=== PATIENT | female | born 1985 | race African-American/Black ===

== ENCOUNTER 2016-09-10 15:14 | Emergency (ER) | payer OTHER ==
[~2016-09-10] VITALS: Ht 162.6 cm; Wt 95.0 kg
[2016-09-10 15:14] VITALS: BP 148/100; PULSE 90; RESP 16; TEMP 98.8; O2SAT 98
--- NOTE | 2016-09-10 15:59 | PD ---
HPI Chief Complaint: Related Problem Time Seen by Provider: 15:50 Travel History International Travel<30 days: No Contact w/Intl Traveler<30days: No Traveled to known affect area: No History of Present Illness HPI This is a 31-year-old female last menstrual period July 02 who presents for evaluation of right lower quadrant abdominal discomfort and vaginal bleeding. Symptoms been ongoing for 2 days. She describes the pain and light work quadrant as a crampy pain that comes and goes. She has been having some vaginal spotting for the past 2 days as well. The vaginal spotting has worsened and she called her SEX OFFENDER TREATMENT PROFESSIONAL's office and was advised to come here for further evaluation. She reports that she is establishing care with Dr. Radford and she reports that an ultrasound was done in his office 2 weeks ago reportedly showing some ovarian cysts on the right side but otherwise unremarkable. She does not know her blood type. Denies dysuria, flank pain, nausea or vomiting. No other complaints. PFSH Past Medical History Medical History: Denies Significant Hx ?: LMP: 07/02/16 Social History Alcohol Use: No Tobacco Use: No Allergies-Medications (Allergen,Severity, Reaction): Coded Allergies: No Known Allergies (Unverified , 09/10/16) Review of Systems Except as stated in HPI: all other systems reviewed are Neg Physical Exam Narrative GENERAL: Well-developed well-nourished female in no acute distress SKIN: Warm and dry. HEAD: Atraumatic. Normocephalic. EYES: Pupils equal and round. No scleral icterus. No injection or drainage. ENT: No nasal bleeding or discharge. Mucous membranes pink and moist. NECK: Trachea midline. No JVD. CARDIOVASCULAR: Regular rate and rhythm. No murmur appreciated. RESPIRATORY: No accessory muscle use. Clear to auscultation. Breath sounds equal bilaterally. GASTROINTESTINAL: Abdomen soft, mild right lower quadrant tenderness without guarding. MUSCULOSKELETAL: No obvious deformities. No edema. NEUROLOGICAL: Awake and alert. No obvious cranial nerve deficits. Motor grossly within normal limits. Normal speech. PSYCHIATRIC: Appropriate mood and affect; insight and judgment normal. Data Data Last Documented VS Vital Signs Date Time Temp Pulse Resp B/P Pulse Ox O2 Delivery O2 Flow Rate FiO2 09/10/16 15:14 98.8 90 16 148/100 98 Room Air Orders Beta Hcg (Quant/Titer) (09/10/16 15:56) Complete Blood Count With Diff (09/10/16 15:56) Comprehensive Metabolic Panel (09/10/16 15:56) Complete Rh (09/10/16 15:56) Us Pelvis (Ques Pr/Ect)W Trans (09/10/16 ) Urinalysis - C+S If Indicated (09/10/16 15:56) Ed Urine Pregnancytest Poc (09/10/16 15:56) Labs Laboratory Tests Test 09/10/16 09/10/16 16:15 16:21 Urine Color YELLOW Urine Turbidity CLEAR Urine pH 5.5 Urine Specific Steger 1.028 Urine Protein TRACE mg/dL Urine Glucose (UA) NEG mg/dL Urine Ketones NEG mg/dL Urine Occult Blood NEG Urine Nitrite NEG Urine Bilirubin NEG Urine Urobilinogen LESS THAN 2.0 MG/DL Urine Leukocyte Esterase NEG Urine RBC LESS THAN 1 /hpf Urine WBC 1 /hpf Urine Squamous Epithelial 1 /hpf Cells Urine Calcium Oxalate Crystals FEW /hpf Urine Mucus FEW /lpf Microscopic Urinalysis Comment CULT NOT INDICATED White Blood Count 6.0 TH/MM3 Red Blood Count 4.88 MIL/MM3 Hemoglobin 12.6 GM/DL Hematocrit 37.3 % Mean Corpuscular Volume 76.3 FL Mean Corpuscular Hemoglobin 25.9 PG Mean Corpuscular Hemoglobin 33.9 % Concent Red Cell Distribution Width 14.6 % Platelet Count 268 TH/MM3 Mean Platelet Volume 8.5 FL Neutrophils (%) (Auto) 62.0 % Lymphocytes (%) (Auto) 28.8 % Monocytes (%) (Auto) 7.5 % Eosinophils (%) (Auto) 1.2 % Basophils (%) (Auto) 0.5 % Neutrophils # (Auto) 3.7 TH/MM3 Lymphocytes # (Auto) 1.7 TH/MM3 Monocytes # (Auto) 0.4 TH/MM3 Eosinophils # (Auto) 0.1 TH/MM3 Basophils # (Auto) 0.0 TH/MM3 CBC Comment DIFF FINAL Differential Comment Sodium Level 137 MEQ/L Potassium Level 3.9 MEQ/L Chloride Level 101 MEQ/L Carbon Dioxide Level 28.0 MEQ/L Anion Gap 8 MEQ/L Blood Urea Nitrogen 14 MG/DL Creatinine 0.84 MG/DL Estimat Glomerular Filtration 97 ML/MIN Rate Random Glucose 103 MG/DL Calcium Level 8.4 MG/DL Total Bilirubin 0.2 MG/DL Aspartate Amino Transf 13 U/L (AST/SGOT) Alanine Aminotransferase 25 U/L (ALT/SGPT) Alkaline Phosphatase 52 U/L Total Protein 7.1 GM/DL Albumin 3.3 GM/DL Human Chorionic Gonadotropin, 27155 MIU/ML Quant Blood Type AB POSITIVE Rho(D) Type POSITIVE MDM Medical Decision Making Medical Screen Exam Complete: Yes Emergency Medical Condition: Yes Medical Record Reviewed: Yes Differential Diagnosis Threatened , ectopic , ovarian cyst, tubo-ovarian abscess, ovarian torsion Narrative Course This patient was initially seen in triage where lab work and ultrasound have been ordered. The patient will be moved to a medical bed when one becomes available. Marino Vick Sep 10, 2016 15:59
[2016-09-10 16:39] LABS: AUTOMATED NEUTROPHIL # 3.7 TH/MM3 (1.8-7.7); BASOPHIL % 0.5 % (0.0-2.0); EOSINOPHIL # 0.1 TH/MM3 (0-0.4); EOSINOPHIL % 1.2 % (0.0-4.0); HEMATOCRIT 37.3 % (35.0-46.0); HEMO FLAGS DIFF FINAL; LYMPH % 28.8 % (9.0-44.0); LYMPHOCYTE # 1.7 TH/MM3 (1.0-4.8); MEAN CELL VOLUME 76.3 FL (80.0-100.0); MEAN CORPUSCULAR HEMOGLOBIN 25.9 PG (27.0-34.0); MEAN CORPUSCULAR HGB CONC 33.9 % (32.0-36.0); MONO % 7.5 % (0.0-8.0); PLATELET COUNT 268 TH/MM3 (150-450); RED BLOOD COUNT 4.88 MIL/MM3 (4.00-5.30); RED CELL DISTRIBUTION WIDTH 14.6 % (11.6-17.2)
[2016-09-10 16:51] LABS: ALT (GPT) 25 U/L (10-53); ANION GAP 8 MEQ/L (5-15); AST (GOT) 13 U/L (15-37); BLOOD UREA NITROGEN 14 MG/DL (7-18); CHLORIDE 101 MEQ/L (98-107); GLOMERULAR FILTRATION RATE 97 ML/MIN (>89); POTASSIUM 3.9 MEQ/L (3.5-5.1); SODIUM (NA) 137 MEQ/L (136-145)
[2016-09-10 16:55] LABS: BLOOD, URINE NEG (NEG); CALCIUM OXALATE CRYSTALS,URINE FEW /hpf; COMMENT (UR) CULT NOT INDICATED; CULTURE IF INDICATED CULT NOT INDICATED; GLUCOSE,URINE NEG (NEG); KETONE, URINE NEG (NEG); MUCUS URINE FEW /lpf (OCC); NITRITE,URINE NEG (NEG); PH, URINE 5.5 (5.0-8.5); SQUAMOUS EPITHELIAL CELL URINE 1 /hpf (0-5); URINE COLOR YELLOW (YELLW/STRAW)
[2016-09-10 17:08] LABS: ALKALINE PHOSPHATASE 52 U/L (45-117); BETA HCG QUANT 76152 MIU/ML (0-5); TOTAL BILIRUBIN ADULT 0.2 MG/DL (0.2-1.0)
--- NOTE | 2016-09-10 19:10 | PD ---
Physical Exam Narrative Patient was seen by physician medicine assistant and signed out to me. DIPLOMATIC OFFICER exam: No fresh blood in the vaginal vault. Brownish discharge noted. The cervix long thick and closed. Uterus is enlarged with mild tenderness on palpation. No adnexal mass or tenderness. Data Data Last Documented VS Vital Signs Date Time Temp Pulse Resp B/P Pulse Ox O2 Delivery O2 Flow Rate FiO2 09/10/16 20:00 75 16 119/71 98 Room Air 09/10/16 15:14 98.8 Orders Beta Hcg (Quant/Titer) (09/10/16 15:56) Complete Blood Count With Diff (09/10/16 15:56) Comprehensive Metabolic Panel (09/10/16 15:56) Complete Rh (09/10/16 15:56) Us Pelvis (Ques Pr/Ect)W Trans (09/10/16 ) Urinalysis - C+S If Indicated (09/10/16 15:56) Ed Urine Pregnancytest Poc (09/10/16 15:56) Labs Laboratory Tests Test 09/10/16 09/10/16 16:15 16:21 Urine Color YELLOW Urine Turbidity CLEAR Urine pH 5.5 Urine Specific Grandin 1.028 Urine Protein TRACE mg/dL Urine Glucose (UA) NEG mg/dL Urine Ketones NEG mg/dL Urine Occult Blood NEG Urine Nitrite NEG Urine Bilirubin NEG Urine Urobilinogen LESS THAN 2.0 MG/DL Urine Leukocyte Esterase NEG Urine RBC LESS THAN 1 /hpf Urine WBC 1 /hpf Urine Squamous Epithelial 1 /hpf Cells Urine Calcium Oxalate Crystals FEW /hpf Urine Mucus FEW /lpf Microscopic Urinalysis Comment CULT NOT INDICATED White Blood Count 6.0 TH/MM3 Red Blood Count 4.88 MIL/MM3 Hemoglobin 12.6 GM/DL Hematocrit 37.3 % Mean Corpuscular Volume 76.3 FL Mean Corpuscular Hemoglobin 25.9 PG Mean Corpuscular Hemoglobin 33.9 % Concent Red Cell Distribution Width 14.6 % Platelet Count 268 TH/MM3 Mean Platelet Volume 8.5 FL Neutrophils (%) (Auto) 62.0 % Lymphocytes (%) (Auto) 28.8 % Monocytes (%) (Auto) 7.5 % Eosinophils (%) (Auto) 1.2 % Basophils (%) (Auto) 0.5 % Neutrophils # (Auto) 3.7 TH/MM3 Lymphocytes # (Auto) 1.7 TH/MM3 Monocytes # (Auto) 0.4 TH/MM3 Eosinophils # (Auto) 0.1 TH/MM3 Basophils # (Auto) 0.0 TH/MM3 CBC Comment DIFF FINAL Differential Comment Sodium Level 137 MEQ/L Potassium Level 3.9 MEQ/L Chloride Level 101 MEQ/L Carbon Dioxide Level 28.0 MEQ/L Anion Gap 8 MEQ/L Blood Urea Nitrogen 14 MG/DL Creatinine 0.84 MG/DL Estimat Glomerular Filtration 97 ML/MIN Rate Random Glucose 103 MG/DL Calcium Level 8.4 MG/DL Total Bilirubin 0.2 MG/DL Aspartate Amino Transf 13 U/L (AST/SGOT) Alanine Aminotransferase 25 U/L (ALT/SGPT) Alkaline Phosphatase 52 U/L Total Protein 7.1 GM/DL Albumin 3.3 GM/DL Human Chorionic Gonadotropin, 16750 MIU/ML Quant Blood Type AB POSITIVE Rho(D) Type POSITIVE MDM Supervised Visit with REVA: Yes Interpretation(s) 1915 p.m. CBC within normal limit. CMP within normal limit. Beta hCG 76 , 152. UA is negative. Blood type AB+. 2002 PM. Last Impressions Pelvis Ultrasound 09/10/16 0000 Signed Impressions: Service Date/Time: Saturday, September 10, 2016 17:59 - CONCLUSION: Viable IUP. K. Holland Lentz MD Diagnosis Primary Impression: Vaginal bleeding in patient at less than 20 weeks gestation Patient Instructions: General Instructions Additional Instruction: Encourage by mouth fluids bed rest. Follow-up with OB in a.m. as scheduled. Return if increasing pelvic pain and vaginal bleeding. Med/Other Pt SpecificInfo: No Meds Exist/No RX given Disposition: 01 DISCHARGE HOME Condition: Stable Robin Vanegas MD Sep 10, 2016 19:10
--- NOTE | 2016-09-10 19:29 | RADRPT ---
EXAM DATE/TIME: 09/10/2016 17:59 [facility] COMPARISON: No previous studies available for comparison. INDICATIONS : Bleeding and pelvic pain with . LAB(S): Beta-hC MEDICAL HISTORY : . Ovarian cysts. x 1. SURGICAL HISTORY : None. ENCOUNTER: Initial ACUITY: 3 days PAIN SCORE: 2/10 LOCATION: Bilateral pelvis MEASUREMENTS: UTERUS: 10.8 x 8.2 x 5.5 cm ENDOMETRIAL STRIPE: >20 mm RIGHT OVARY: 3.8 x 3.2 x 3.2 cm LEFT OVARY: 2.6 x 2.1 x 1.7 cm FREE FLUID: No CROWN RUMP LENGTH: 2.1 cm = 8 WKS 5 DAYS FHR: 180 BPM FINDINGS: Low cysts are present in the right ovary the largest measures 2.0 cm in size. There is no free fluid. The adnexa is unremarkable. CONCLUSION: Viable IUP. [place] Lentz MD on September 10, 2016 at 19:27 Board Certified Radiologist. This report was verified electronically.
[2016-09-10 20:00] VITALS: BP 119/71; PULSE 75; RESP 16; O2SAT 98
== END 2016-09-10 20:14 | disposition home or self-care (01) ==
LOC: NEPC 15:14
DX: O20.9 Hemorrhage in early pregnancy, unspecified (principal)
CPT/HCPCS: 76700; 76817; 80053; 81001; 84702; 84703; 85025; 86901

== ENCOUNTER 2017-04-06 10:50 | Inpatient (IN) | payer OTHER ==
[~2017-04-06] VITALS: Ht 162.6 cm; Wt 93.0 kg
[2017-04-06] VITALS (38 sets, daily range): BP systolic 111–145; BP diastolic 70–102; PULSE 68–101; RESP 14–20; TEMP 97.8–98.1
[2017-04-06] MEDS ORDERED: LACTATED RINGER'S 1000 ML INJ 1,000 ML IV PRN (11:38)
[2017-04-06] MEDS ORDERED: LACTATED RINGER'S 1000 ML INJ 1,000 ML IV SCH (11:38)
--- NOTE | 2017-04-06 11:43 | HHI.HP ---
HPI Chief Complaint Water broke Date Seen: Apr 06, 2017 Time Seen: 11:40 Travel History International Travel<30 Days: No Contact w/Intl Traveler<30Days: No Known Affected Area: No History of Present Illness HPI 31-year-old black female at 38-weeks presents with spontaneous rupture membranes. She grossly ruptured and amnio sure is positive on the heart tones reactive and she is having sporadic contraction and feeling no pain Weeks Gestation: 38 Para: 0 : 1 History Social History Alcohol Use: No Tobacco Use: No Substance Abuse: No Allergies-Medications (Allergen,Severity, Reaction): Coded Allergies: No Known Allergies (Unverified , 09/10/16) Review of Systems General / Constitutional: No: Fever, Weight Gain, Chills, Other Eyes: No: Diploplia, Blurred Vision, Visual changes, Pain, Photophobia HENT: No: Headaches, Vertigo, Lightheadedness Cardiovascular: No: Irregular Rhythm, Chest Pain or Discomfort, Palpitations, Tachycardia, Syncope, Varicosities, Edema, Cyanosis Respiratory: No: Cough, Short of Breath, Other Gastrointestinal: No: Nausea, Vomiting, Diarrhea Genitourinary: No: Decreased Urinary Output, Oliguria Musculoskeletal: No: Limited ROM, Weakness, Cramping, Edema, Pain Skin: No Rash, No Itching, No Dryness, No Lumps, No Change in Pigmentation, No Change in Nails, No Alopecia, No Lesions Neurologic: No: Weakness, Dizziness, Syncope, Focal Abnormalities, Coordination Problem, Headache, Slurred Speech, Seizures Psychiatric: No: Depression, Suicidal Ideations, Homicidal Ideation Endocrine: No: Heat Intolerance, Cold Intolerance, Polydipsia, Polyuria, Other Physical Exam Narrative GENERAL: Well-nourished, well-developed patient. SKIN: Warm and dry. HEAD: Normocephalic and atraumatic. EYES: No scleral icterus. No injection or drainage. ENT: No nasal drainage noted. Mucous membranes pink. Airway patent. NECK: Supple, trachea midline. No JVD. CARDIOVASCULAR: Regular rate and rhythm without murmurs, gallops, or rubs. RESPIRATORY: Breath sounds equal bilaterally. No accessory muscle use. BREASTS: Bilateral exam showed no masses , no retractions, no nipple discharge. ABDOMEN/GI: Abdomen soft, non-tender, bowel sounds present, no rebound, no guarding Gravid to [-38] weeks size Fundal Height: [38-] GENITOURINARY: External Genitalia: intact and normal in appearance BUS glands: [-] Cervix: [1-] Dilatation: [-1] Effacement: [thick-] Station: [-3] Presentation: [vtx-] Membranes: ruptured] amnio sure positive Uterine Contractions: [-Occasional] FHT's: Category: [1-] Baseline: [133-] Reactive: [-yes] Variability: [mod-] Decels: [none-] EXTREMITIES: No cyanosis or edema. BACK: Nontender without obvious deformity. No CVA tenderness. NEUROLOGICAL: Awake and alert. Motor and sensory grossly within normal limits. Five out of 5 muscle strength in all muscle groups. Normal speech. Caprini VTE Risk Assessment Caprini VTE Risk Assessment: No/Low Risk (score <= 1) Caprini Risk Assessment Model Point Value = 1 Point Value = 2 Point Value = 3 Point Value = 5 Age 41-60 Minor surgery BMI > 25 kg/m2 Swollen legs Varicose veins or History of unexplained or recurrent spontaneous Oral contraceptives or hormone replacement Sepsis (< 1 month) Serious lung disease, including pneumonia (< 1 month) Abnormal pulmonary function Acute myocardial infarction Congestive heart failure (< 1 month) History of inflammatory bowel disease Medical patient at bed rest Age 61-74 Arthroscopic surgery Major open surgery (> 45 min) Laparoscopic surgery (> 45 min) Malignancy Confined to bed (> 72 hours) Immobilizing plaster cast Central venous access Age >= 75 History of VTE Family history of VTE Factor V Leiden Prothrombin [id number] Lupus anticoagulant Anticardiolipin antibodies Elevated serum homocysteine Heparin-induced thrombocytopenia Other congenital or acquired thrombophilia Stroke (< 1 month) Elective arthroplasty Hip, pelvis, or leg fracture Acute spinal cord injury (< 1 month) Prophylaxis Regimen Total Risk Factor Score Risk Level Prophylaxis Regimen 0-1 Low Early ambulation 2 Moderate Order ONE of the following: *Sequential Compression Device (SCD) *Heparin 5000 units SQ BID 3-4 Higher Order ONE of the following medications: *Heparin 5000 units SQ TID *Enoxaparin/Lovenox 40 mg SQ daily (WT < 150 kg, CrCl > 30 mL/min) *Enoxaparin/Lovenox 30 mg SQ daily (WT < 150 kg, CrCl > 10-29 mL/min) *Enoxaparin/Lovenox 30 mg SQ BID (WT < 150 kg, CrCl > 30 mL/min) AND/OR *Sequential Compression Device (SCD) 5 or more Highest Order ONE of the following medications: *Heparin 5000 units SQ TID (Preferred with Epidurals) *Enoxaparin/Lovenox 40 mg SQ daily (WT < 150 kg, CrCl > 30 mL/min) *Enoxaparin/Lovenox 30 mg SQ daily (WT < 150 kg, CrCl > 10-29 mL/min) *Enoxaparin/Lovenox 30 mg SQ BID (WT < 150 kg, CrCl > 30 mL/min) AND *Sequential Compression Device (SCD) Data Data Orders Orders Ob (2e) Additional Admit Info (04/06/17 11:19) Admit To Inpatient (04/06/17 ) Vital Signs (Adult) .Per protocol (04/06/17 11:38) Heart (04/06/17 11:38) Amnioinfusion (04/06/17 11:38) Urinary Catheter Management .ONCE (04/06/17 11:38) Diet Liquid (04/06/17 Lunch) Lactated Ringer's 1000 Ml Inj (Lr 1000 M (04/06/17 11:38) Lactated Ringer's 1000 Ml Inj (Lr 1000 M (04/06/17 11:38) Sodium Chlorid 0.9% 500 Ml Inj (Ns 500 M (04/06/17 11:45) Sodium Chlor 0.9% 1000 Ml Inj (Ns 1000 M (04/06/17 11:58) Lidocaine 1% Inj (50 Ml) (Xylocaine 1% I (04/06/17 11:45) Citric Acid-Sodium Citrate Liq (Bicitra (04/06/17 11:45) Fentanyl Inj (Fentanyl Inj) (04/06/17 11:45) Fentanyl Inj (Fentanyl Inj) (04/06/17 11:45) Complete Blood Count With Diff (04/06/17 11:38) Hold Clot (04/06/17 11:38) Abo/Rh Blood Type (04/06/17 11:38) Urinalysis - C+S If Indicated (04/06/17 11:38) Type And Screen (04/06/17 11:38) Resp Oxygen Non Rebreathe Mask (04/06/17 ) ^ Epidural / Intrathecal Infus (04/06/17 11:38) Oxytocin 30 Units-500ml Premix (Pitocin (04/06/17 11:45) Lidocaine 1% Inj (50 Ml) (Xylocaine 1% I (04/06/17 11:45) Light Mineral Oil (Muri-Lube Oil) (04/06/17 11:45) Specimen To Be Collected PRN (04/06/17 11:38) ^ Non Stress Test (04/06/17 11:39) Response To Medication .Post New Med Administration, Reaction (04/06/17 11:39) ^ Discontinue Medication (04/06/17 11:39) Oxytocin Drip (2-2-30) (04/06/17 11:45) Group B Strep: Negative Labs Amnio sure positive Assessment/Plan Assessment and Plan Is 31-year-old black female at [address] Villanueva presents with spontaneous ruptured membranes, not in labor at this time cervix is 1 thick and high, heart tones reactive, no contractions seen regularly, Impressions SROM at 38 weeks and a primip not in labor at this time Plan-admit and augment and induce labor Sam Somers II, MD Apr 06, 2017 11:43
[2017-04-06] MEDS ORDERED: LIDOCAINE HCL 1% 50 ML VIAL I-DERMAL PRN (11:45)
[2017-04-06] MEDS ORDERED: LIDOCAINE HCL 1% 50 ML VIAL INFIL PRN (11:45)
[2017-04-06] MEDS ORDERED: CITRIC ACID-SODIUM CITRATE LIQ 30 ML UDC PO SCH (11:45)
[2017-04-06] MEDS ORDERED: SODIUM CHLORID 0.9% 500 ML INJ 500 ML IV PRN (11:45)
[2017-04-06] MEDS ORDERED: MINERAL OIL 10 ML VIAL TOPICAL PRN (11:45)
[2017-04-06] MEDS ORDERED: OXYTOCIN 30 UNITS-500ML PREMIX 500 ML IV SCH (11:45)
[2017-04-06] MEDS ORDERED: OXYTOCIN 30 UNITS-500ML PREMIX 500 ML IV ONE (11:45)
[2017-04-06] MEDS ORDERED: SODIUM CHLOR 0.9% 1000 ML INJ 1,000 ML IV PRN (11:58)
[2017-04-06 12:46] LABS: BLOOD, URINE NEG (NEG); COMMENT (UR) CULT NOT INDICATED; CULTURE IF INDICATED CULT NOT INDICATED; GLUCOSE,URINE NEG (NEG); KETONE, URINE NEG (NEG); MUCUS URINE FEW /lpf (OCC); NITRITE,URINE NEG (NEG); SQUAMOUS EPITHELIAL CELL URINE 2 /hpf (0-5); URINE COLOR YELLOW (YELLW/STRAW)
[2017-04-06 13:18] LABS: AUTOMATED NEUTROPHIL # 3.7 TH/MM3 (1.8-7.7); BASOPHIL % 0.5 % (0.0-2.0); EOSINOPHIL # 0.1 TH/MM3 (0-0.4); EOSINOPHIL % 1.8 % (0.0-4.0); HEMATOCRIT 37.7 % (35.0-46.0); HEMO FLAGS DIFF FINAL; LYMPH % 24.6 % (9.0-44.0); LYMPHOCYTE # 1.4 TH/MM3 (1.0-4.8); MEAN CELL VOLUME 80.2 FL (80.0-100.0); MEAN CORPUSCULAR HEMOGLOBIN 26.1 PG (27.0-34.0); MEAN CORPUSCULAR HGB CONC 32.5 % (32.0-36.0); MONO % 7.4 % (0.0-8.0); NEUT % 65.7 % (16.0-70.0); PLATELET COUNT 178 TH/MM3 (150-450); RED CELL DISTRIBUTION WIDTH 15.6 % (11.6-17.2); WHITE BLOOD COUNT 5.7 TH/MM3 (4.0-11.0)
[2017-04-06] MEDS ORDERED: Prenatal Vitamin PO (15:19)
[2017-04-06] MEDS ORDERED: NO SYSTEM NARCOTICS PRN (20:00)
[2017-04-06] MEDS ORDERED: fentaNYL 2MCG-BUPIV 0.125% 100 ML EPIDURAL SCH (20:00)
[2017-04-06] MEDS ORDERED: DO NOT ADMINISTER ANTICOAGULANTS PRN (20:00)
[2017-04-06] MEDS ORDERED: fentaNYL 2MCG-BUPIV 0.125% INJ 100 ML ONE (20:19)
[2017-04-06] MEDS ORDERED: ePHEDrine/NS 25 MG/5 ML SYR ONE (20:19)
[2017-04-06] MEDS ORDERED: ePHEDrine/NS 25 MG/5 ML SYR IV PUSH PRN (22:00)
[2017-04-07] VITALS (14 sets, daily range): BP systolic 105–129; BP diastolic 68–84; PULSE 71–91; RESP 16–20; TEMP 98.4–98.8; O2SAT 92
--- NOTE | 2017-04-07 00:20 | PD.OB.DELI ---
Weeks gestation: 38 Gest age assessed date: Apr 06, 2017 Gest age assessed time: 11:15 Pt started active labor?: Yes Medical induction of labor?: No Artificial rupture of membrane: No Anesthesia: Epidural Episiotomy: None Vaginal Delivery: Normal Presentation: Occiput anterior, Compound (hand) Nuchal Cord: None Delayed cord clamping (45 sec): Yes Delivery date: Apr 07, 2017 Delivery time: 12:03 One Minute : 8 Five Minute : 9 Weight: Delayed for [id number] Placenta: Spontaneous delivery, Intact, 3 vessel cord Laceration: 2 deg Repair: Vicryl running Estimated blood loss: 250cc Additional Information Supervised by An Pagan MD, R3 Apr 07, 2017 00:20
[2017-04-07] MEDS ORDERED: BENZOCAINE 20% TOPICAL SPRAY 60 ML CAN TOPICAL PRN (00:30)
[2017-04-07] MEDS ORDERED: oxyCODONE/ACETAMINOPHEN 5 MG/325 MG TAB PO PRN ×2 (00:30)
[2017-04-07] MEDS ORDERED: OXYTOCIN 30 UNITS-500ML PREMIX 500 ML IV SCH (00:30)
[2017-04-07] MEDS ORDERED: ALUMINUM/MAGNESIUM/SIMETH 30 ML CUP PO PRN (00:30)
[2017-04-07] MEDS ORDERED: WITCH HAZEL 50%/GLYCERIN 12.5% 40 PAD JAR TOPICAL PRN (00:30)
[2017-04-07] MEDS ORDERED: SODIUM CHLORIDE 0.9% FLUSH 10 ML FLUSH IV FLUSH PRN (00:30)
[2017-04-07] MEDS ORDERED: ZOLPIDEM TARTRATE 5 MG TAB PO PRN (00:30)
[2017-04-07] MEDS ORDERED: ONDANSETRON ODT 4 MG TAB PO PRN (00:30)
[2017-04-07] MEDS: IBUPROFEN 600 MG TAB PO PRN ×4 (01:40→23:46)
--- NOTE | 2017-04-07 08:22 | PD.PN.STU ---
Subjective Remarks Ms. Nolen delivered just past midnight. She had some difficulty sleeping last night. Her pain is well-controlled with motorin and percocet. She reports normal vaginal bleeding. She denies fever, chest pain, and SOB. She is breast feeding but has had some mild difficulty. Overall she is feeling well. Objective Vitals Vital Signs Date Time Temp Pulse Resp B/P (MAP) Pulse Ox O2 Delivery O2 Flow Rate FiO2 04/07/17 02:30 98.4 18 04/07/17 02:30 86 123/73 (90) 04/07/17 01:30 89 124/68 (86) 04/07/17 01:19 98.7 04/07/17 01:17 16 04/07/17 01:16 90 120/71 (87) 04/07/17 01:14 16 04/07/17 01:01 91 126/72 (90) 04/07/17 00:59 18 04/07/17 00:58 88 129/79 (96) 04/07/17 00:38 16 04/07/17 00:31 88 129/72 (91) 04/07/17 00:30 18 04/06/17 23:13 18 04/06/17 23:00 82 132/87 (102) 04/06/17 22:03 98.0 04/06/17 22:02 16 04/06/17 22:01 68 134/84 (101) 04/06/17 21:45 76 04/06/17 21:40 84 04/06/17 21:36 75 134/88 (103) 04/06/17 21:35 79 04/06/17 21:33 80 133/82 (99) 04/06/17 21:30 77 132/87 (102) 04/06/17 21:30 20 04/06/17 21:30 81 04/06/17 21:25 141/88 (105) 04/06/17 21:25 78 04/06/17 21:21 101 142/98 (113) 04/06/17 21:20 79 04/06/17 21:18 88 141/90 (107) 04/06/17 21:16 96 132/72 (92) 04/06/17 21:15 95 04/06/17 21:14 95 145/102 (116) 04/06/17 21:10 92 04/06/17 21:00 90 04/06/17 20:40 88 04/06/17 20:35 83 04/06/17 20:30 20 04/06/17 20:30 92 141/94 (110) 04/06/17 20:25 75 04/06/17 20:20 82 04/06/17 20:19 18 04/06/17 20:17 78 121/78 (92) 04/06/17 20:15 89 04/06/17 19:24 98.1 16 04/06/17 19:05 80 122/78 (93) 04/06/17 18:52 79 120/78 (92) 04/06/17 18:19 98.0 04/06/17 18:18 74 120/75 (90) 04/06/17 17:00 77 127/79 (95) 04/06/17 17:00 14 04/06/17 14:36 79 117/73 (88) 04/06/17 13:56 79 117/75 (89) 04/06/17 13:15 97.8 18 04/06/17 13:04 82 111/70 (84) 04/06/17 12:02 94 122/87 (99) Result Diagram: 04/06/17 1215 Objective Remarks HEENT: normocephalic Pulm: clear to auscultation Cardiac: regular rate and rhythm. normal s1 and s2 Abdomen: fundus is firm. At this time no tenderness to palpation elicited Medications and IVs Current Medications Medications (Trade) Dose Ordered Sig/Maria Fernanda Route Start Time Stop Time Status Last Admin (Xylocaine 1% Inj (50 ml)) 0.1 ml UNSCH X1 PRN I-DERMAL 04/06/17 11:45 04/09/17 11:44 (Bicitra Liq) 30 ml SKIN TOGGLER PO 04/06/17 11:45 04/10/17 11:44 (Xylocaine 1% Inj (50 ml)) 10 ml UNSCH X1 PRN INFIL 04/06/17 11:45 04/08/17 11:44 Miscellaneous Information No systemic narcotics to be given except... UNSCH PRN .XX 04/06/17 20:00 04/07/17 19:59 Miscellaneous Information DO NOT ADMINISTER ANY ANTICOAGUL... UNSCH PRN .XX 04/06/17 20:00 04/07/17 19:59 (ePHEDrine/NS 25 MG/5 ML SYR) 10 mg UNSCH PRN IV PUSH 04/06/17 22:00 04/07/17 21:59 (NS Flush) 2 ml BID IV FLUSH 04/07/17 09:00 (NS Flush) 2 ml UNSCH PRN IV FLUSH 04/07/17 00:30 (Tylenol) 650 mg Q4H PRN PO 04/07/17 00:30 (Motrin) 600 mg Q6H PRN PO 04/07/17 00:30 04/07/17 01:40 (Percocet 5-325 Mg) 1 tab Q4H PRN PO 04/07/17 00:30 (Percocet 5-325 Mg) 2 tab Q4H PRN PO 04/07/17 00:30 (Americaine 20% Top Spr) 1 spray Q4H PRN TOPICAL 04/07/17 00:30 (Tucks Pads) 1 applic QID PRN TOPICAL 04/07/17 00:30 (Maye-Colace) 2 tab Q12H PRN PO 04/07/17 00:30 (Ambien) 5 mg HS PRN PO 04/07/17 00:30 (M-M-R Ii Inj) 0.5 ml ONCE ONCE SQ 04/07/17 16:00 04/07/17 16:01 (Boostrix Inj) 0.5 ml ONCE ONCE IM 04/07/17 16:00 04/07/17 16:01 (Mag-Al Plus Susp Liq) 15 ml Q8H PRN PO 04/07/17 00:30 (Zofran Odt) 4 mg Q6H PRN PO 04/07/17 00:30 A/P Assessment and Plan Post delivery day one routine post- care Yrn Betancourt M3 Apr 07, 2017 08:22
[2017-04-07] MEDS ORDERED: SODIUM CHLORIDE 0.9% FLUSH 10 ML FLUSH IV FLUSH SCH (09:00)
[2017-04-07] MEDS: DOCUSATE SODIUM 50 MG/SENNA 8.6 MG TAB PO PRN (10:14)
[2017-04-07] MEDS: ACETAMINOPHEN 325 MG TAB PO PRN ×3 (10:14→21:15)
[2017-04-07] MEDS ORDERED: DIPHTH/TETANUS/ACEL PERTUSSIS (BOOSTER) 0.5 ML VIAL/PFS IM ONE (16:00)
[2017-04-07] MEDS ORDERED: MEASLES, MUMPS, RUBELLA VACCINE 0.5 ML VIAL SQ ONE (16:00)
--- NOTE | 2017-04-07 18:01 | HHI.DCPOC ---
Discharge Care Plan Diagnosis: (1) Vaginal delivery Report Symptoms to Your Doctor -Temperature above 100.5 degrees -Redness, of incision or excessive or foul smelling drainage -Unusual pain or calf pain -Increased vaginal bleeding -Painful or difficulty urinating -Feelings of extreme sadness or anxiety after 2 weeks Goals to Promote Your Health * To prevent worsening of your condition and complications * To maintain your health at the optimal level Directions to Meet Your Goals Take your medications as prescribed Follow your dietary instruction Follow activity as directed Ensure plenty of rest for recovery Drink fluids for hydration Keep your appointments as scheduled Take your immunizations and boosters as scheduled If your symptoms worsen call your PCP, if no PCP go to Urgent Care Center or Emergency Room Smoking is Dangerous to Your Health. Avoid second hand smoke Call the 24-hour crisis hotline for domestic abuse at Mumtaz Villanueva MD Apr 07, 2017 18:00
[2017-04-08] MEDS ORDERED: IBUP-232 PO (07:26)
[2017-04-08 07:30] VITALS: PULSE 72; RESP 18; TEMP 97.6
[2017-04-08] MEDS: IBUPROFEN 600 MG TAB PO PRN (07:51)
[2017-04-08] MEDS: DOCUSATE SODIUM 50 MG/SENNA 8.6 MG TAB PO PRN (07:51)
[2017-04-08] MEDS: ACETAMINOPHEN 325 MG TAB PO PRN (07:51)
[2017-04-08] MEDS ORDERED: INFLUENZA VIRUS VACCINE (QUADRIVALENT) 0.5 ML SYR IM ONE (10:00)
--- NOTE | 2017-04-08 11:02 | HHI.OB ---
Subjective Post Day: 1 Objective Vitals/I&O Vital Signs Date Time Temp Pulse Resp B/P (MAP) Pulse Ox O2 Delivery O2 Flow Rate FiO2 04/08/17 07:30 97.6 72 18 04/07/17 20:00 98.4 71 20 121/84 (96) 92 Objective Remarks GENERAL: Well-nourished, well-developed patient. CARDIOVASCULAR: Regular rate and rhythm without murmurs, gallops, or rubs. RESPIRATORY: Breath sounds equal bilaterally. No accessory muscle use. ABDOMEN/GI: Abdomen soft, non-tender. Fundus: Firm, non-tender at umbilicus. GENITOURINARY: Light to moderate bleeding. EXTREMITIES: No cyanosis or edema, non-tender, without signs of DVT. Medications and IVs Current Medications Medications (Trade) Dose Ordered Sig/Maria Fernanda Route Start Time Stop Time Status Last Admin (Xylocaine 1% Inj (50 ml)) 0.1 ml UNSCH X1 PRN I-DERMAL 04/06/17 11:45 04/09/17 11:44 (Bicitra Liq) 30 ml POT LINER PO 04/06/17 11:45 04/10/17 11:44 (Xylocaine 1% Inj (50 ml)) 10 ml UNSCH X1 PRN INFIL 04/06/17 11:45 04/08/17 11:44 (NS Flush) 2 ml BID IV FLUSH 04/07/17 09:00 (NS Flush) 2 ml UNSCH PRN IV FLUSH 04/07/17 00:30 (Tylenol) 650 mg Q4H PRN PO 04/07/17 00:30 04/08/17 07:51 (Motrin) 600 mg Q6H PRN PO 04/07/17 00:30 04/08/17 07:51 (Percocet 5-325 Mg) 1 tab Q4H PRN PO 04/07/17 00:30 (Percocet 5-325 Mg) 2 tab Q4H PRN PO 04/07/17 00:30 (Americaine 20% Top Spr) 1 spray Q4H PRN TOPICAL 04/07/17 00:30 04/07/17 20:05 (Tucks Pads) 1 applic QID PRN TOPICAL 04/07/17 00:30 04/07/17 20:05 (Maye-Colace) 2 tab Q12H PRN PO 04/07/17 00:30 04/08/17 07:51 (Ambien) 5 mg HS PRN PO 04/07/17 00:30 (Mag-Al Plus Susp Liq) 15 ml Q8H PRN PO 04/07/17 00:30 (Zofran Odt) 4 mg Q6H PRN PO 04/07/17 00:30 Assessment/Plan Assessment and Plan pt doing well pain well managed with oral pain medication pt pumping to encourage milk and is and bottle routine care Discharge Planning dc home today Laina Manley Apr 08, 2017 11:02
--- NOTE | 2017-04-08 11:07 | HHI.DS ---
Admission Date Apr 06, 2017 at 11:27 Discharge Date: Apr 08, 2017 Admitting Diagnosis 38 weeks srom Diagnosis: Delivery Date: Apr 07, 2017 Vaginal Delivery: Normal Infant: Female Brief History 31-year-old black female at 38-weeks presents with spontaneous rupture membranes. She grossly ruptured and amnio sure is positive on the heart tones reactive and she is having sporadic contraction and feeling no pain Hospital Course term srom induction of labor routine Pt Condition on Discharge: Good Discharge Disposition: Discharge Home Discharge Instructions Diet Instructions: As Tolerated, No Restrictions Additional Diet Instructions: Drink at least 8 - 16 oz bottles of water a day Activities You Can Perform: Shower Only-No Bath, Sitz Bath Activities to Avoid: Lifting/Bending, Sexual Activity Additional Activity Instruc.: No driving until off pain medications Do not lift anything heavier than your baby in an infant carrier Follow up Referrals: MOTION PICTURE DIRECTOR - 2 Weeks @ [facility] New Medications: Ibuprofen (Ibuprofen) 600 Mg Tab 600 MG PO Q6H PRN for CRAMPING, #30 TAB Continued Medications: [ Vitamin] () 1 TAB PO DAILY Laina Manley Apr 08, 2017 11:07
== END 2017-04-08 12:59 | disposition home or self-care (01) | DRG 775 ==
LOC: HOBED 10:50 → H2EB 11:27 → H1EA 04-07 02:15
PROVIDERS: ADMIT Obstetrics & Gynecology; ATTEND Obstetrics & Gynecology
PROC: 3E0P3VZ Introduction of Hormone into Female Reproductive, Percutaneous Approach (ICD-10-PCS; 2017-04-06)
PROC: 3E0R3BZ Introduction of Anesthetic Agent into Spinal Canal, Percutaneous Approach (ICD-10-PCS; 2017-04-06)
PROC: 00HU33Z Insertion of Infusion Device into Spinal Canal, Percutaneous Approach (ICD-10-PCS; 2017-04-06)
PROC: 10E0XZZ Delivery of Products of Conception, External Approach (ICD-10-PCS; principal; 2017-04-07)
PROC: 0KQM0ZZ Repair Perineum Muscle, Open Approach (ICD-10-PCS; 2017-04-07)
DX: O42.02 Full-term premature rupture of membranes, onset of labor within 24 hours of rupture (principal); O32.6XX0 Maternal care for compound presentation, not applicable or unspecified; O70.1 Second degree perineal laceration during delivery; Z37.0 Single live birth; Z3A.38 38 weeks gestation of pregnancy; Z23 Encounter for immunization
CPT/HCPCS: 59025; 81001; 84112; 85025; 86850; 86900; 86901; 90686; 90707; 90715; J2590; J7120; Q2038